=== PATIENT | male | born 1930 | race Hispanic/Latino ===

== ENCOUNTER → 2017-10-18 | Day surgery (SDC) | payer MEDICARE, OTHER ==
[2017-10-16 16:55] LABS: BASOPHILS # (AUTO) 0.1 (0.0-0.1); BASOPHILS % 1.1 % (0.0-1.0); EOSINOPHILS # (AUTO) 0.2 (0.0-0.4); EOSINOPHILS % 3.8 % (0.0-6.0); HEMATOCRIT 39.7 % (38.2-49.6); HEMOGLOBIN 12.8 g/dL (14.0-18.0); LYMPHOCYTES # (AUTO) 1.1 (1.0-3.2); LYMPHOCYTES % 24.1 % (18.0-39.1); MEAN CORPUSCULAR HEMOGLOBIN 28.4 pg (28-32); MEAN CORPUSCULAR HGB CONC 32.2 g/dL (31-35); MONOCYTES # (AUTO) 0.4 (0.2-0.8); MONOCYTES % 8.2 % (4.4-11.3); NEUTROPHILS # (AUTO) 2.8 (2.1-6.9); NEUTROPHILS % 62.6 % (38.7-80.0); PLATELET COUNT 137 x10e3/uL (140-360); RED BLOOD COUNT 4.51 x10e6/uL (4.3-5.7); RED CELL DISTRIBUTION WIDTH 13.2 % (11.7-14.4)
[2017-10-16 17:01] LABS: ANION GAP 12.2 mmol/L (8-16); BLOOD UREA NITROGEN 22 mg/dL (7-26); BUN/CREATININE RATIO 20 (6-25); CALCIUM 8.9 mg/dL (8.4-10.2); CARBON DIOXIDE 30 mmol/L (22-29); CHLORIDE 103 mmol/L (98-107); CREATININE, SERUM 1.11 mg/dL (0.72-1.25); EST GLOMERULAR FILTRATION RATE > 60 ML/MIN (60-); GLUCOSE 89 mg/dL (74-118); POTASSIUM 4.2 mmol/L (3.5-5.1); SODIUM 141 mmol/L (136-145)
--- NOTE | 2017-10-16 17:18 | Diagnostic Imaging Report ---
PROCEDURE: X-RAY CHEST, TWO VIEWS COMPARISON: Chest x-ray 02/01/17. INDICATIONS: PRE-OPERATIVE CHEST X-RAY FOR PROSTATE SURGERY FINDINGS: LUNGS/PLEURA: Stable pulmonary hyperinflation. Calcified pleural plaques in the right hemithorax are stable. There is a loculated right pleural effusion or pleural thickening, small. Eventration of the right diaphragm is stable. No new findings in the left lung. Pulmonary vascular markings are normal. No pneumothorax. HEART \T\ MEDIASTINUM: The heart is normal in size. Stable aortic ectasia. 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 BONES \T\ SOFT TISSUES: No focal osseous lesions. Soft tissues are unremarkable. CONCLUSION: Stable calcified pleural plaques and pleural thickening/chronic effusion of the right hemithorax. Pulmonary hyperinflation suggestive of COPD. No acute cardiopulmonary process. Dictated by: Colin Hugo M.D. on 10/16/2017 at 17:17 Electronically approved by: Colin Hugo M.D. on 10/16/2017 at 17:17
[~2017-10-18] MED LIST: BELLADONNA/OPIUM 60 MG SUPP PR ONE; CEFTRIAXONE SOD 1 GM VIAL ONE; DEXAMETHASONE SOD PHOS INJ 4 MG/ML VIAL ONE; ELLIQUIS; FAMOTIDINE20 MG PO; FENTANYL CITRATE/PF 100MCG/2 ML INJ ONE; FINASTERIDE5 MG PO; FUROSEMIDE40 MG PO; GABAPENTIN100 MG; GABAPENTIN400 MG PO; GENTAMICIN 80MG/NS 100 ML 200 ML IV ONE; IOPAMIDOL 610MG/1ML 300 MG/ML VIAL IV ONE; K-TAB10 MEQ PO; LEVOTHYROXINE50 MCG PO; LIDOCAINE HCL 2% LOCAL INJ 5 ML SDV VIAL INJ ONE; LISINOPRIL10 MG PO; LISINOPRIL2.5 MG PO; MULTI-VITAMIN1 EACH; OMEPRAZOLE40 MG PO; ONDANSETRON HCL INJ 2 MG/ML VIAL ONE; OXYBUTYNIN CHLO15 MG PO; OXYCODONE HCL20 M1 PO; PRADAXA150 MG PO; PROPOFOL IV EMULSION 10 MG/ML 20 ML VIAL ONE; SEVOFLURANE INHAL SOLN 250 ML PEN BTL ONE; SIMVASTATIN20 MG PO; TAMSULOSIN HCL0.4 MG PO; TOPROL XL25 MG PO; VITAMIN D1000 UNIT
--- OUTSIDE RECORDS SUMMARY | 2017-10-18 05:19 | XMS REPORT ---
[facility] Address Unknown Phone Unavailable Care Team Providers Care Heel Caser Name Role Phone CHERIE GALO Unavailable Unavailable Problems This patient has no known problems. Allergies, Adverse Reactions, Alerts This patient has no known allergies or adverse reactions. Medications This patient has no known medications. Results Test Description Test Time Test Comments Text Results Atomic Results Result Comments CHEST 2 VIEWS [place] [address] Patient Name: RANDI AUSTIN MR #: [id number] : 1930 Age/Sex: 87/M Req # : [id number] Adm Physician: Ordered by: RUPERT TERRAZAS MD Report #: [id number] Location: OR Room/Bed: Procedure: [id number] DX/CHEST 2 VIEWS Exam Date: 10/16/17 Exam Time: 1615 REPORT STATUS: Signed PROCEDURE: X-RAY CHEST, TWO VIEWS COMPARISON: Chest x-ray 02/01/17. INDICATIONS: PRE-OPERATIVE CHEST X-RAY FOR PROSTATE SURGERY FINDINGS: LUNGS/PLEURA: Stable pulmonary hyperinflation. Calcified pleural plaques in the right hemithorax are stable. There is a loculated right pleural effusion or pleural thickening, small. Eventration of the right diaphragm is stable. No new findings in the left lung. Pulmonary vascular markings are normal. No pneumothorax. HEART T MEDIASTINUM: The heart is normal in size. Stable aortic ectasia. 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 BONES T SOFT TISSUES: No focal osseous lesions. Soft tissues are unremarkable. CONCLUSION: Stable calcified pleural plaques and pleural thickening/chronic effusion of the right hemithorax. Pulmonary hyperinflation suggestive of COPD. No acute cardiopulmonary process. Dictated by: Meagan Hugo M.D. on 2017 at 17:17 Electronically approved by: Meagan Hugo M.D. on 2017 at 17:17 Dictated By: MEAGAN HUGO MD 16 Transcribed By : ANDREZ on 10/16/171716 COPY TO: RUPERT TERRAZAS MD
--- NOTE | 2017-12-15 09:07 | Operative Report ---
DATE OF PROCEDURE: October 18, 2017 PREOPERATIVE DIAGNOSES: 1. Incomplete bladder emptying. 2. Obstructive benign prostatic hypertrophy. POSTOPERATIVE DIAGNOSES: 1. Incomplete bladder emptying. 2. Obstructive benign prostatic hypertrophy. 3. Complete left ureteral duplication. OPERATIONS PERFORMED: 1. Cystourethroscopy with bilateral ureteral catheterization and retrograde ureteropyelography (separate procedure performed to evaluate the upper tracts in light of the incomplete bladder emptying). 2. Interpretation of retrograde ureteropyelography. 3. Cystourethroscopy with transurethral resection of the prostate utilizing the PlasmaButton electrode (separate procedure performed for the obstructive benign prostatic hypertrophy). ANESTHESIA: General. COMPLICATIONS: None. CLINICAL SUMMARY: Pedro Ceballos is an 87-year-old man with obstructive BPH. He has failed medical therapy. He is brought for the above procedures. He is aware of the risks of bleeding, infection, injury to adjacent structures, need for additional procedures, and elected to proceed. OPERATIVE PROCEDURE IN DETAIL: Informed consent was verified. Pedro Ceballos was properly identified and taken to the operating room and placed on the cystoscopy table in supine position. Anesthesia was uneventfully begun. The patient was then carefully and gently repositioned in dorsal lithotomy position with all pressure points well padded. His genitalia were prepared and draped in usual sterile fashion. The 22.5-Upper Sorbian cystoscope sheath with the visual obturator in place was atraumatically inserted in patient's urethra. It was guided down the unremarkable urethra through the sphincteric region which was normal and then through the prostate bed, which was significant for bilobar prostatic hypertrophy with an additional median lobe and visually obstructing lateral lobes. Panendoscopy of the urinary bladder revealed small diverticula with heavy trabeculations, but no tumors, no stones, and no suspicious lesions. An 8-Upper Sorbian catheter was used to cannulate each ureter, and retrograde ureteral pyelograms were performed. Interpretation of retrograde ureteropyelography: Contrast was instilled in retrograde fashion bilaterally. There were no tumors, no stones, and no diverticula. Unobstructed drainage was observed bilaterally fluoroscopically. The cystoscope was withdrawn and resectoscope was introduced. Bipolar TURP was performed utilizing a PlasmaButton electrode. Vaporization of the prostate was carried out from the bladder neck too, but never past the verumontanum. This was done down the surgical capsule. Excellent hemostasis was achieved with pinpoint electrocautery. The resectoscope was then withdrawn. Continuous irrigation Suarez catheter was placed. It was irrigated to and fro to ensure it worked properly, and the patient was uneventfully reversed from anesthesia and taken to recovery room in stable condition. There were no complications to the procedure. Patient tolerated the procedure well. Estimated blood loss was minimal. Explicit postoperative instructions were given, and will follow the patient up in the office, at which point will perform uroflowmetry and bladder ultrasonography. Job#: [id number] cc:CARMENCITA STATON MD
== END | disposition home or self-care (01) ==
LOC: OR 05:16
PROVIDERS: ATTEND Urology
DX: N40.0 Benign prostatic hyperplasia without lower urinary tract symptoms (principal); N40.1 Benign prostatic hyperplasia with lower urinary tract symptoms; N13.8 Other obstructive and reflux uropathy; R39.14 Feeling of incomplete bladder emptying; R35.0 Frequency of micturition; R35.1 Nocturia; Q62.5 Duplication of ureter; N32.3 Diverticulum of bladder; N32.89 Other specified disorders of bladder; N39.41 Urge incontinence; N47.5 Adhesions of prepuce and glans penis; N32.81 Overactive bladder; E03.9 Hypothyroidism, unspecified; I45.10 Unspecified right bundle-branch block; I48.91 Unspecified atrial fibrillation; I49.3 Ventricular premature depolarization; Z01.810 Encounter for preprocedural cardiovascular examination; Z01.812 Encounter for preprocedural laboratory examination; Z01.818 Encounter for other preprocedural examination; Z79.82 Long term (current) use of aspirin; Z95.0 Presence of cardiac pacemaker; Z86.11 Personal history of tuberculosis
CPT/HCPCS: 36415; 52005; 52601; 71046; 74420; 80048; 85025; 93005; C1758; J0696; J1100; J1580; J2001; J2405; Q9967